=== PATIENT | male | born 1990 | race Caucasian/White ===

== ENCOUNTER 2018-04-06 11:54 | Emergency (ER) | payer SELFPAY ==
[2018-04-06 11:55] VITALS: BP 133/87; PULSE 58; RESP 18; TEMP 35.5; O2SAT 100; BMI 23.7
--- NOTE | 2018-04-06 12:15 | CT_ITS ---
STUDY: CT ABDOMEN AND PELVIS WITH CONTRAST REASON FOR EXAM: Male, 27 years old. Right lower abdominal and testicular pain. RADIATION DOSAGE (If Supplied By Facility): CTDIvol = ( 6.04 ) mGy, DLP = ( 303.53 ) mGycm TECHNIQUE: Transaxial images were obtained from the dome of the diaphragm to the symphysis pubis without oral contrast. 100 ml of Isovue 370 contrast was administered. Sagittal and coronal images were reconstructed. Individualized dose optimization techniques were used for this CT. COMPARISON: None. FINDINGS: The visualized lung bases are unremarkable. The heart size is normal. There may be trace of pericardial effusion. Normal liver. Normal gallbladder and extrahepatic biliary system. Normal spleen. Normal pancreas. Normal bilateral adrenal glands. There is mild right hydronephrosis. There is a 7 mm stone in the right ureterovesical junction. There may be additional stone slightly more distally. There are 1 mm or less nonobstructing stones in the left kidney. There is no evidence of left hydronephrosis. Normal visualized stomach. Normal small intestine. There is fecal retention. There is thickening of the distal descending colon probably due to underdistention. The appendix is visualized and appears normal. Normal abdominal aorta. Normal inferior vena cava. Normal retroperitoneum. The urinary bladder is suboptimally distended. Normal abdominal wall. Normal osseous structures. CT/Abdomen/Pelvis without Cont IMPRESSION: 1. Mild right hydronephrosis secondary to 7 mm stone in the right ureterovesical junction. 2. Questionable trace of pericardial effusion. Correlation with echocardiogram is recommended. 3. Fecal retention. 4. No evidence of acute appendicitis. Electronically Signed: Yazan Nobles MD at 13:13 EDT Tel , Service support ,
--- NOTE | 2018-04-06 12:18 | ED.DCSUM_ITS ---
- ER Visit Summary Date of Service: 04/06/18 Chief Complaint: [] Woke with right flank pain this morning History of Present Illness: The patient is a 27 M [] past history went to bed feeling fine was awoken with sudden onset of right flank pain this morning indicates radiates from his flank into his right testicle. He has had normal bowel bladder habits except report he feels that he is urinating more frequently , he has no past history of any kind denies kidney stones trauma or any other elements Physical Examination: [] hand and draws across his right flank vital signs are within normal limits head neck chest unremarkable abdomen is soft he is a vague discomfort to the right flank is vague right CVAT the exam is unremarkable his normal genitalia nontender no hernias upper lower extremities and back otherwise unremarkable Test Results: [] Emergency Department Course and Treatment: [] Screening labs IV fluids pain management CT flank Patient's evaluation is generally unremarkable see those reports except for the CT flank that shows a 7 mm stone at the UVJ with hydronephrosis reevaluation is feeling better discussed all the above with him is comfortable discharge home discussed and follow-up with urology return for increasing pain etc. he understands and agrees with outpatient management and will return for change in symptoms Treatment Plan: [] Disposition: [] Home stable Impression: [] Right flank pain related to right obstructing kidney stone as above This note was generated with [employer] dictation software. It may contain incorrect words, spelling, and punctuation that were not noted in review of the chart prior to signing ED Disposition - Plan for ED Patient: Chief Complaint: Abd Pain Referrals: Care Physician,No Primary [Primary Care Provider] -
[2018-04-06] MEDS: 0.9% Normal Saline 1,000 ML 250 ML IV (12:19)
[2018-04-06] MEDS: Ketorolac 30 MG/ML Syringe IV (12:20)
[2018-04-06] MEDS: Ondansetron 4 MG/2 ML Vial IV (12:20)
[2018-04-06 12:21] LABS: Bacteria 0 SEEN /hpf (None Seen); Mucous, Urine 0 SEEN /hpf (<or=2+); Squamous Epithelial Cells - UA 0 SEEN /hpf (0-5)
[2018-04-06] MEDS: morphine 8 MG/ML Syringe IV (12:21)
[2018-04-06 12:33] LABS: Absolute Lymphocyte Count 2.82 X10^3/ul (0.83-4.51); Absolute Neutrophil Count 5.6 X10^3/uL (2.0-7.7); Basophil# 0.03 X10^3/uL; Basophil% 0.3 % (0-1); Color, Urine Yellow (Yellow); Eosinophil# 0.39 X10^3/uL; Glucose, Dipstick Normal (Normal); Hematocrit 44.1 % (40-54); Hemoglobin 14.6 g/dl (13.0-16.5); Ketone-Dipstick Negative (Negative); Leukocyte Esterase-Dipstick 25 /ul (Negative); Lymphocyte # 2.82 X10^3/ul (4.0); Lymphocyte % 29.1 % (19-41); Mean Corp Hgb Conc 33.1 g/gl (32-36); Mean Corpuscular Hgb 33.1 pg (27.0-32.0); Mean Platelet Vol. 9.1 fl (6.2-12.0); Monocyte# 0.87 X10^3/uL; Neutrophil # 5.56 X10^3/uL (2.7-7.7); Neutrophil % 57.5 % (47-70); Nitrite-Dipstick Negative (Negative); Occult Blood-Urine 250 /ul (Negative); Platelet Count 248 K/mm3 (150-450); Protein-Dipstick 15 mg/dl (Negative); RBC Distribution Width SD 47.6 fl (35.1-43.9); Red Blood Count 4.41 M/mm3 (4.6-6.2); Specific Gravity, Urine 1.015 (1.002-1.030); Urine Bilirubin Dipstick Negative (Negative); Urine Clarity Clear (Clear); Urine Urobilinogen Normal (Normal); Urine pH 6.5 (5.0 - 8.0); White Blood Count 9.7 K/mm3 (4.4-11.0)
[2018-04-06 12:34] LABS: POSITIVE COUNT NO; POSITIVE DIFFERENTIAL NO; POSITIVE MORPHOLOGY NO
[2018-04-06 12:40] LABS: Anion Gap 4 (5-15); BUN 16 mg/dL (7-18); BUN/Creat Ratio 20.2 RATIO (10-20); Calcium,Total 8.4 mg/dL (8.5-10.1); Chloride 110 mmol/L (98-107); Creatinine, Serum 0.79 mg/dL (0.70-1.30); EST Glomerular Filtration Rate 123 mL/min (>60); Est Glom Filt Rate - Afr Amer 148 mL/min (>60); Estimated Creatinine Clearance 128.99 ml/min; Glucose 110 mg/dL (74-106); Potassium 4.4 mmol/L (3.5-5.1); Sodium Level 142 mmol/L (136-145)
[2018-04-06 12:41] LABS: Red Blood Cells-Urine 5-10 SEEN /hpf (0-5); White Blood Cells 0-5 SEEN /hpf (0-5)
--- NOTE | 2018-04-06 13:22 | ED.DEP ---
ED Disposition - Plan for ED Patient: Chief Complaint: Abd Pain Instructions: ED Stone Renal W Colic Prescriptions: Hydrocodone/Acetaminophen [[place] 5-325 Tablet] 1 - 2 ea PO 4X/DAY PRN PRN 5 Days #20 tab PRN Reason: Pain Tamsulosin HCl [Flomax] 0.4 mg PO DAILY #7 cap Naproxen [Naprosyn] 500 mg PO BID #14 tab Referrals: Care Physician,No Primary [Primary Care Provider] - Ofelia Pardo MD [STAFF PHYSICIAN] -
--- NOTE | 2018-04-06 13:25 | DCINST.ED_ITS ---
ED Disposition - Plan for ED Patient: Chief Complaint: Abd Pain Instructions: ED Stone Renal W Colic Prescriptions: Hydrocodone/Acetaminophen [[place] 5-325 Tablet] 1 - 2 ea PO 4X/DAY PRN PRN 5 Days #20 tab PRN Reason: Pain Tamsulosin HCl [Flomax] 0.4 mg PO DAILY #7 cap Naproxen [Naprosyn] 500 mg PO BID #14 tab Referrals: Care Physician,No Primary [Primary Care Provider] - Ofelia Pardo MD [STAFF PHYSICIAN] -
[2018-04-06 13:45] VITALS: BP 118/84; PULSE 46; RESP 18; O2SAT 99
--- NOTE | 2018-04-06 13:46 | ED.RN ---
REVIEWED D/C INSTRUCTIONS, FOLLOW UP CARE, PRESCRIPTIONS, AND S/S THAT WOULD WARRANT A RETURN TO THE ED WITH PT. PT VERBALIZED AN UNDERSTANDING AND DENIES FURTHER QUESTIONS FOR THIS RN. PT SKIN P/W/D, RESP EVEN AND UNLABORED, PT A&O X 3, NO DISTRESS NOTED. PT AMBULATED OUT OF ED, GAIT STEADY.
== END 2018-04-06 13:47 | disposition home or self-care (01) ==
PROVIDERS: Emergency Provider Emergency Medicine
DX: R10.9 Unspecified abdominal pain (principal); N13.2 Hydronephrosis with renal and ureteral calculous obstruction
CPT/HCPCS: 74176; 80048; 81001; 85025; 96361; 96374; 96375; 99282; J7030; A4216; J2405

== ENCOUNTER 2019-06-04 17:58 | Emergency (ER) | payer SELFPAY ==
[2019-06-04 17:59] VITALS: BP 121/71; PULSE 88; RESP 13; TEMP 37; O2SAT 97; BMI 24.5
--- NOTE | 2019-06-04 18:21 | ED.VIS.GEN ---
History of Present Illness Chief Complaint: Cold Sx Detail of Chief Complaint: Respiratory illness x3 weeks Informant: Patient Onset: Weeks - Weeks Context: Sudden Onset Timing: Continuous Quality: Reductive cough Location: Respiratory Current Severity: Mild Maximum Severity: Moderate Worsened by: Nothing Relieved by: Nothing Associated Symptoms: Initially with rhinorrhea and congestion Narrative: Patient is a 28-year-old smoker who presents with illness that started 3 weeks ago. He initially had congestion and rhinorrhea. He has not had any congestion rhinorrhea for 2 weeks. He now complains of productive cough of colored sputum. He denies wheezing. He denies fever or chills. Does report left ear pain. He denies throat pain or change in voice. He denies rash. He denies GI symptoms. Prior similar symptoms: No Recent Illness/Hospitalization: No - Past Medical History (1) No significant past medical history Status: Acute Past Medical History - Allergies and Home Meds Allergies/Adverse Reactions: Allergies No Known Allergies Allergy (Verified 06/04/19 18:02) Primary Care Physician: Care Physician,No Primary [Primary Care Provider] - Prior records reviewed: No Past Medical History: None Surgical History: no surgical history Lives: Alone Smoking Status: Current every day smoker Alcohol: Occasional Review of Systems General: Denies: Chills, Fever, Malaise, Subjective, Sweats Eyes: Denies: Visual changes - bilaterally, Blurred Vision - bilaterally, Diplopia ENT: Reports: Left ear pain, Rhinorrhea. Denies: Sore throat Cardiovascular: Denies: Chest pain, Palpitations Respiratory: Reports: Dyspnea, Cough, Sputum. Denies: Dyspnea on exertion, Orthopnea, Paroxysmal nocturnal dyspnea Gastrointestinal: Denies: Abdominal pain, Nausea, Vomiting, Diarrhea, Melena, Hematochezia Genitourinary: Denies: Dysuria, Hematuria, Frequency Musculoskeletal: Denies: Myalgias, Arthralgias, Neck pain, Back pain, Swelling, Extremity Pain, -, - Skin: Denies: Rash, Wounds Neurological: Denies: Headache, Weakness, Numbness Allergy: Denies: Uticaria, Swelling of the mouth Physical Exam Vital Signs/Narrative: Vital Signs Temp Pulse Resp BP Pulse Ox 06/04/19 17:59 98.6 F 88 13 121/71 H 97 Inital Vital Signs reviewed: Yes General: Well nourished, Well developed, No Acute Distress Head: Normocephalic, Atraumatic Eyes: Perrl, EOMI. Negative for: Pale conjunctiva, Scleral icterus ENT: Moist mucous membranes, No rhinorrhea, TM's clear. Negative for: Nasal congestion, Sinus tenderness Neck: Supple, Nontender, No lymphadenopathy, No JVD, - - Trachea is midline there is no stridor. Cardiovascular: Regular rate, Regular rhythm, No murmurs, Normal S1, Normal S2 Respiratory: No distress, CTA bilaterally, Chest nontender Skin: Normal color, No rash Neurological: Alert, Oriented x3, Cranial nerves II-XII grossly intact, Normal Strength, Normal Sensation Psychological: Normal affect, Normal Mood Diagnostic/Tx/Re-eval - Medical Decision Making With no fever, normal vital signs and no auscultatory findings x-ray was not obtained. Since he is a smoker with productive cough for [address] on doxycycline for typical and atypical coverage. ED Disposition - Plan for ED Patient: Disposition: Home or Assisted Living Diagnosis: Purulent bronchitis Instructions: BRONCHITIS, Antiobiotic Treatment (Adult) Prescriptions: Doxycycline 100 mg PO BID #14 cap Prescription Printed Referrals: Care Physician,No Primary [Primary Care Provider] - Jenna Busch MD [STAFF PHYSICIAN] - 1 Week if not improving
== END 2019-06-04 18:42 | disposition home or self-care (01) ==
LOC: ED 18:27
PROVIDERS: Emergency Provider Emergency Medicine
DX: J41.1 Mucopurulent chronic bronchitis (principal); H92.02 Otalgia, left ear; F17.200 Nicotine dependence, unspecified, uncomplicated
CPT/HCPCS: 99282